=== PATIENT | male | born 1945 | race Caucasian/White ===

== ENCOUNTER → 2016-07-04 | Outpatient (CLI) | payer OTHER ==
--- NOTE | 2016-07-08 10:42 | SLEEPHOME ---
DATE OF STUDY: 07/04/2016 ORDERED BY: Roxanne Clarke DO Diagnostic home sleep testing was performed due to concern for obstructive sleep apnea syndrome. For testing, a NOX-T3 respiratory monitoring device was used. Continuous record was made of pulse, oxygen saturation, airflow, chest and abdominal strain, and body position. 9 hours and 59 minutes of data were reviewed. Of these, 6 hours and 18 minutes were marked as time in bed. During the interval marked time in bed, there were 411 respiratory events identified of 10 seconds in duration or greater for a respiratory event index of 65.1. Baseline rate pulse rate 67 beats per minute. Pulse rate ranged 56 to 104. Baseline saturation 93%, lowest oxygen saturation 71%. Testing was performed in both the supine and non supine positions. IMPRESSION: Abnormal home sleep testing with repetitive respiratory events. Oxygen desaturation to 71% and a respiratory event index of 65.1 is consistent with the obstructive sleep apnea syndrome. RECOMMENDATION: The patient should be referred for formal sleep evaluation and in laboratory pressure titration.
== END ==
LOC: M SLEEP HO 08:49
PROVIDERS: ATTEND Physician Assistant
DX: R53.83 Other fatigue (principal)

== ENCOUNTER → 2016-10-14 | Outpatient (CLI) | payer OTHER ==
--- NOTE | 2016-10-20 13:58 | SLEEPCENT ---
DATE OF PROCEDURE: 10/14/2016 ORDERED BY: Katerine Iyer Nocturnal polysomnography was performed for the titration of pressure therapy in this patient with a clinical diagnosis of obstructive sleep apnea syndrome supported by home testing revealing a respiratory event index of 65. For testing, the patient was fit with a [employer] Simplus full face mask of large size, 4 cm of water pressure were applied to the circuit and the lights were extinguished. 8 hours and 9 minutes of data were reviewed. There were 220 minutes of sleep identified. Sleep latency was normal at 23 minutes. REM latency was mildly prolonged at 177 minutes. Sleep architecture remained somewhat fragmented. There was a period of wake around 4 a.m. Overall sleep efficiency was reduced at 46%. Patient's EKG showed a sinus rhythm with an average heart rate of 63 beats per minute. EEG showed reasonably normal wave forms for wake and sleep. Respiratory events were fairly well palliated with CPAP at a pressure of +6. There was some persistence of limb activity, however, several bursts of 30 or more events were seen with a limb movement arousal index of 22. IMPRESSION: 1. Obstructive sleep apnea syndrome (G47.33). 2. Periodic limb movement disorder (G47.61). Limb movement arousal index 22. RECOMMENDATION: Nightly use of pressure therapy at 6 cm of water should be sufficient to address the patient's respiratory events. Interventions to reduce the frequency or arousal from limb activity will likely be needed to optimize sleep.
== END ==
LOC: M SLEEP 19:45
PROVIDERS: ATTEND Nurse Practitioner Adult Health
DX: G47.33 Obstructive sleep apnea (adult) (pediatric) (principal)

== ENCOUNTER → 2018-05-31 | Outpatient (CLI) | payer MEDICARE ==
[2018-05-31 13:43] LABS: HEMOGLOBIN 12.8 g/dl (13.5-17.5); MEAN CORPUSCULAR HEMOGLOBIN 31.4 pg (27.0-33.0); MEAN CORPUSCULAR HGB CONC 32.8 g/dl (32.0-36.5); MEAN CORPUSCULAR VOLUME 95.8 fl (80.0-96.0); PLATELET COUNT, AUTOMATED 228 10^3/uL (150-450); RED BLOOD COUNT 4.07 10^6/uL (4.30-6.10); WHITE BLOOD COUNT 5.3 10^3/uL (4.0-10.0)
[2018-05-31 14:13] LABS: C REACTIVE PROTEIN QUANTITATIV < 0.30 MG/DL (0.00-0.30); FERRITIN 190 NG/ML (26-388); IRON (FE) 107 UG/DL (65-175); PERCENT SATURATION 35.4 % (19.7-50.0); TOTAL IRON BINDING CAPACITY 302 UG/DL (250-450)
[2018-05-31 14:18] LABS: ERYTHROCYTE SEDIMENTATION RATE 76 mm/hr (0-20)
[2018-05-31 14:20] LABS: VITAMIN B12 LEVEL 460 PG/ML (247-911)
[2018-05-31 14:21] LABS: FOLATE 16.5 NG/ML (>5.4)
== END ==
LOC: M LAB 12:38
PROVIDERS: ATTEND Nurse Practitioner Family
DX: F01.50 Vascular dementia, unspecified severity, without behavioral disturbance, psychotic disturbance, mood disturbance, and anxiety (principal)

== ENCOUNTER 2019-02-15 06:45 | Day surgery (SDC) | payer MEDICARE, OTHER ==
[~2019-02-15] VITALS: Ht 172.7 cm; Wt 91.4 kg
[~2019-02-15 06:45] MED LIST: ALLO100T PO; ASPI81TA85 PO; ATOR1TAB21 PO; CETI10CH PO; DONE10TA90 PO; FURO20TA2 PO; LEVO125T4 PO; LOSA25TA14 PO; NS 1,000 ML IV SCH; prevagen PO
[2019-02-15] MEDS ORDERED: PROPOFOL 500 MG/50 ML VIAL As Ordered ONE (07:18)
[2019-02-15] MEDS ORDERED: fentaNYL 100 MCG/2 ML INJECTION (J3010) As Ordered ONE (07:48)
[2019-02-15] MEDS ORDERED: LIDOCAINE 2% INJ 100 MG/5 ML SDV (FOR ANES.) As Ordered ONE (07:48)
--- NOTE | 2019-02-15 08:32 | ROOR ---
Patient Name: Ihsan Cuellar Procedure Date: 02/15/2019 8:15 AM Date of : 1945 Age: 73 Room: [facility] Gender: Male Note Status: Finalized Procedure: Upper Endoscopy + Biopsies Indications: Heartburn, Exclusion of Edouard's esophagus, Abdominal bloating Providers: George Melgoza MD Referring MD: Ihsan Mosqueda Requesting Provider: Medicines: Monitored Anesthesia Care Complications: No immediate complications. Procedure: Pre-Anesthesia Assessment: - The heart rate, respiratory rate, oxygen saturations, blood pressure, adequacy of pulmonary ventilation, and response to care were monitored throughout the procedure. The Endoscope was introduced through the mouth, and advanced to the second part of duodenum. The upper GI endoscopy was accomplished without difficulty. The patient tolerated the procedure well. Findings: The Z-line was variable and was found 40 cm from the incisors. Multiple biopsies were obtained with cold forceps for evaluation to rule out Edouard's Esophagus randomly at the gastroesophageal junction. A small hiatal hernia was present. Localized minimal inflammation characterized by congestion (edema) and erythema was found in the gastric antrum. Biopsies were taken with a cold forceps for Helicobacter pylori testing. The exam of the duodenum was otherwise normal. Impression: - Z-line variable, 40 cm from the incisors. - Small hiatal hernia. - Mucosal changes suspicious for gastritis. Biopsied. - Multiple biopsies were obtained at the gastroesophageal junction. - The examination was otherwise normal. Recommendation: - Patient has a contact number available for emergencies. The signs and symptoms of potential delayed complications were discussed with the patient. Return to normal activities tomorrow. Written discharge instructions were provided to the patient. - High fiber diet. - Discharge patient to home. - Follow an antireflux regimen. - Continue present medications. - Await pathology results. - Telephone GI clinic for pathology results in 1 week. - Return to referring physician. - Repeat upper endoscopy for surveillance based on pathology results. - The findings and recommendations were discussed with the patient's family. George Melgoza MD George Melgoza MD 02/15/2019 8:32:09 AM Electronically signed by George Melgoza MD Number of Addenda: 0 Note Initiated On: 02/15/2019 8:15 AM Estimated Blood Loss: Estimated blood loss: none.
[2019-02-15] MEDS ORDERED: PROPOFOL 200 MG/20 ML VIAL As Ordered ONE (08:53)
--- NOTE | 2019-02-15 09:04 | ROOR ---
Patient Name: Ihsan Cuellar Procedure Date: 02/15/2019 8:16 AM Date of : 1945 Age: 73 Room: [facility] Gender: Male Note Status: Finalized Procedure: Total Colonoscopy to Cecum + Cold Snare Polypectomy + Hemoclips + APC Indications: High risk colon cancer surveillance: Personal history of colonic polyps, Last colonoscopy 3 years ago Providers: George Melgoza MD Referring MD: Ihsan Mosqueda Requesting Provider: Medicines: Monitored Anesthesia Care Complications: No immediate complications. Procedure: Pre-Anesthesia Assessment: - The heart rate, respiratory rate, oxygen saturations, blood pressure, adequacy of pulmonary ventilation, and response to care were monitored throughout the procedure. The Colonoscope was introduced through the anus and advanced to the cecum, identified by appendiceal orifice and ileocecal valve. The colonoscopy was performed without difficulty. The patient tolerated the procedure well. The quality of the bowel preparation was excellent. Findings: The perianal and digital rectal examinations were normal. Internal hemorrhoids were found during retroflexion. The hemorrhoids were small. Multiple small and large-mouthed diverticula were found in the recto-sigmoid colon, sigmoid colon and descending colon. A large polyp was found in the mid ascending colon. The polyp was sessile. The polyp was removed with a cold snare. Resection and retrieval were complete. Coagulation for tissue destruction using argon beam at 0.8 liters/minute and 20 [place] was successful. To prevent bleeding after the polypectomy, three hemostatic clips were successfully placed (MR conditional). There was no bleeding at the end of the procedure. The exam was otherwise without abnormality on direct and retroflexion views. Impression: - Internal hemorrhoids. - Diverticulosis in the recto-sigmoid colon, in the sigmoid colon and in the descending colon. - One large polyp in the mid ascending colon, removed with a cold snare. Resected and retrieved. Treated with argon beam coagulation. Clips (MR conditional) were placed. - The examination was otherwise normal on direct and retroflexion views. - The exam was otherwise normal to the cecum. Recommendation: - Patient has a contact number available for emergencies. The signs and symptoms of potential delayed complications were discussed with the patient. Return to normal activities tomorrow. Written discharge instructions were provided to the patient. - High fiber diet. - Discharge patient to home. - Continue present medications. - Await pathology results. - Telephone GI clinic for pathology results in 1 week. - Repeat colonoscopy for surveillance based on pathology results. - Return to referring physician. - The findings and recommendations were discussed with the patient's family. George Melgoza MD George Melgoza MD 02/15/2019 9:03:49 AM Electronically signed by George Melgoza MD Number of Addenda: 0 Note Initiated On: 02/15/2019 8:16 AM Estimated Blood Loss: Estimated blood loss: none.
[2019-02-15 09:39] VITALS: BP 142/69
== END 2019-02-15 09:39 | disposition home or self-care (01) ==
LOC: M OPP 06:45
PROVIDERS: ATTEND Internal Medicine Gastroenterology
DX: Z12.11 Encounter for screening for malignant neoplasm of colon (principal); Z86.010 Personal history of colon polyps; K64.8 Other hemorrhoids; D12.2 Benign neoplasm of ascending colon; K57.30 Diverticulosis of large intestine without perforation or abscess without bleeding; K22.8 Other specified diseases of esophagus; R12 Heartburn; G47.30 Sleep apnea, unspecified; Z79.82 Long term (current) use of aspirin; Z87.891 Personal history of nicotine dependence
CPT/HCPCS: 45388; 88305; J3010